=== PATIENT | male | born 1955 | race African-American/Black ===

== ENCOUNTER 2021-12-09 14:06 | Emergency (ER) | payer OTHER ==
[2021-12-09 15:47] LABS: EOSINOPHIL 3.2 % (0-7); HCT 44.7 % (42.0-52.0); HGB 14.7 g/dl (13.2-18.0); LYMPHOCYTE 37.2 % (15-48); MCH 27.5 pg (25.0-31.0); MCHC 32.9 g/dL (32.0-36.0); MCV 83.7 fL (78.0-100.0); MONOCYTE 10.9 % (0-12); MPV 10.4 fL (6.0-9.5); NEUTROPHIL 47.2 % (41-80); NRBC 0; PLT 228 K/uL (150-400); RBC 5.34 M/uL (4.70-6.00); WBC 5.9 K/uL (4.0-10.5)
[2021-12-09 16:01] LABS: INR 0.98 (0.9-1.2); PROTHROMBIN TIME 12.7 SECONDS (11.9-13.9); PTT 24.7 SECONDS (24.9-34.6)
[2021-12-09 16:38] LABS: BILIRUBIN NEGATIVE (NEGATIVE); BLOOD TRACE-LYSED Ery/uL (NEGATIVE); CLARITY CLEAR (CLEAR); COLOR YELLOW (YELLOW); GLUCOSE (U) NORMAL (NORMAL); LEUKOCYTES NEGATIVE Leu/uL (NEGATIVE); NITRITE NEGATIVE (NEGATIVE); PROTEIN NEGATIVE (NEGATIVE); pH 7.5 (5.0-9.0)
[2021-12-09 16:44] LABS: SQUAMOUS EPITHELIAL CELLS RARE; URINARY WBC RARE
[2021-12-09 17:12] LABS: ALBUMIN 3.7 g/dL (3.4-5.0); BILIRUBIN - TOTAL 0.4 mg/dL (0.2-1.0); BUN/CREAT RATIO (CALC) 15.1 RATIO; CREATININE 1.19 mg/dL (0.67-1.17); GLOBULIN (CALCULATION) 3.8 g/dL; MAGNESIUM 1.9 mg/dL (1.8-2.4); POTASSIUM 4.6 mmol/L (3.5-5.1); TOTAL PROTEIN 7.5 g/dL (6.4-8.2)
== END 2021-12-09 18:13 | disposition home or self-care (01) ==
LOC: FER 14:06
PROVIDERS: Emergency Medicine
DX: T67.5XXA Heat exhaustion, unspecified, initial encounter (principal); I10 Essential (primary) hypertension
CPT/HCPCS: 36415; 70450; 80053; 81001; 82550; 83735; 83880; 84484; 85025; 85610; 85730; 93005; J3490